=== PATIENT | female | born 1965 | race Caucasian/White ===

== ENCOUNTER → 2018-10-24 | Outpatient (CLI) | payer OTHER | END | disposition home or self-care (01) | LOC: CFH 14:18 | PROVIDERS: ATTEND Nurse Practitioner | DX: M19.042 Primary osteoarthritis, left hand (principal); M19.041 Primary osteoarthritis, right hand; M18.11 Unilateral primary osteoarthritis of first carpometacarpal joint, right hand; M18.12 Unilateral primary osteoarthritis of first carpometacarpal joint, left hand ==